=== PATIENT | male | born 1995 | race Caucasian/White ===

== ENCOUNTER → 2018-11-20 | Outpatient (CLI) | payer OTHER ==
[~2018-11-20] MED LIST: CYCL10 PO; HYDCOR2.5C PR; HYDHCL25 PO; Vistaril50 MG PO
[2018-11-20 12:26] LABS: Hematocrit 39.1 % (37.0-53.0); Hemoglobin 12.8 g/dL (13.5-17.5); Mean Corpuscular HGB 27.4 pg (26.0-34.0); Mean Corpuscular HGB Conc 32.7 g/dL (31.5-36.5); Mean Corpuscular Volume 84 fL (80-100); Mean Platelet Volume 9.6 fL (9.1-12.4); Platelet Count 248 K/mm3 (150-400); RDW Coefficient Variation 15.3 % (11.7-14.2); RDW Standard Deviation 46.2 fL (35.1-46.3); Red Blood Cell Count 4.67 M/mm3 (4.30-5.90); White Blood Cell Count 7.31 K/mm3 (4.00-11.30)
[2018-11-20 12:45] LABS: Alanine Aminotransfer (ALT/SGP 192 U/L (12-78); Albumin, Blood 3.2 g/dL (3.4-5.0); Albumin/Globulin Ratio 0.7 (0.8-1.8); Alk Phos 62 U/L (40-126); Anion Gap 12 mmol/L (6-16); Aspartate Aminotrans (AST/SGOT 133 U/L (12-37); Bilirubin, Total 0.4 mg/dL (0.1-1.0); Blood Urea Nitrogen 9 mg/dL (8-24); Bun/Creatinine Ratio 9.2 (12.0-20.0); CO2, Blood 25 mmol/L (21-32); Calcium, Blood 8.5 mg/dL (8.5-10.1); Chloride, Blood 106 mmol/L (98-108); Creatinine, Blood 0.98 mg/dL (0.60-1.20); Globulin, Blood 4.4 g/dL (2.2-4.0); Glomerular Filtration Rate >60 (60-); Glucose, Blood 131 mg/dL (70-99); Potassium, Blood 3.2 mmol/L (3.5-5.5); Sodium, Blood 143 mmol/L (136-145); Thyroid Stimulating Hormone 3.096 uIU/mL (0.360-4.800); Total Protein, Blood 7.6 g/dL (6.4-8.2)
[2018-11-20 13:09] LABS: BASOPHILS ABSOLUTE MAN 0.14 K/mm3 (0.00-0.23); BASOPHILS PERCENT MAN 2 % (0-2); EOSINOPHILS ABSOLUTE MAN 0.36 K/mm3 (0.00-0.68); EOSINOPHILS PERCENT MAN 5 % (0-6); LYMPHOCYTES % ATYPICAL MANUAL 22 % (0-0); LYMPHOCYTES ABSOLUTE MAN 4.53 K/mm3 (0.84-5.20); LYMPHOCYTES PERCENT MAN 40 % (21-46); MONOCYTES ABSOLUTE MAN 0.21 K/mm3 (0.16-1.47); MONOCYTES PERCENT MAN 3 % (4-13); NEUTROPHILS ABSOLUTE MAN 2.04 K/mm3 (1.96-9.15); SEG NEUTROPHILS PERCENT MAN 28 % (41-73); TOTAL CELLS COUNTED 100
== END | disposition home or self-care (01) ==
LOC: LAB EV 12:22 → LAB SHORT 12:22
PROVIDERS: Physician Assistant Medical
DX: R10.84 Generalized abdominal pain (principal)
CPT/HCPCS: 80053; 84443; 85025

== ENCOUNTER 2018-11-23 23:05 | Emergency (ER) | payer OTHER ==
[~2018-11-23] VITALS: Ht 190.5 cm; Wt 158.8 kg
[2018-11-23 23:58] LABS: Hematocrit 39.6 % (37.0-53.0); Hemoglobin 12.8 g/dL (13.5-17.5); Mean Corpuscular HGB 27.7 pg (26.0-34.0); Mean Corpuscular HGB Conc 32.3 g/dL (31.5-36.5); Mean Corpuscular Volume 86 fL (80-100); Platelet Count 294 K/mm3 (150-400); RDW Coefficient Variation 15.1 % (11.7-14.2); RDW Standard Deviation 47.1 fL (35.1-46.3); Red Blood Cell Count 4.62 M/mm3 (4.30-5.90); White Blood Cell Count 9.09 K/mm3 (4.00-11.30)
[2018-11-24 00:17] LABS: Alanine Aminotransfer (ALT/SGP 118 U/L (12-78); Albumin, Blood 3.4 g/dL (3.4-5.0); Albumin/Globulin Ratio 0.8 (0.8-1.8); Alk Phos 60 U/L (50-136); Anion Gap 6 mmol/L (6-16); Aspartate Aminotrans (AST/SGOT 103 U/L (12-37); Bilirubin, Total 0.6 mg/dL (0.1-1.0); Blood Urea Nitrogen 12 mg/dL (8-24); Bun/Creatinine Ratio 11.4 (12.0-20.0); CO2, Blood 27 mmol/L (21-32); Calcium, Blood 8.2 mg/dL (8.5-10.1); Chloride, Blood 110 mmol/L (98-108); Creatinine, Blood 1.05 mg/dL (0.60-1.20); Globulin, Blood 4.1 g/dL (2.2-4.0); Glomerular Filtration Rate >60 (60-); Glucose, Blood 92 mg/dL (70-99); Potassium, Blood 3.4 mmol/L (3.5-5.5); Sodium, Blood 143 mmol/L (136-145); Total Protein, Blood 7.5 g/dL (6.4-8.2)
[2018-11-24 00:23] LABS: BAND PERCENT MAN 3 % (0-8); BASOPHILS ABSOLUTE MAN 0.09 K/mm3 (0.00-0.23); BASOPHILS PERCENT MAN 1 % (0-2); EOSINOPHILS ABSOLUTE MAN 0.36 K/mm3 (0.00-0.68); EOSINOPHILS PERCENT MAN 4 % (0-6); LYMPHOCYTES % ATYPICAL MANUAL 23 % (0-0); LYMPHOCYTES ABSOLUTE MAN 5.36 K/mm3 (0.84-5.20); LYMPHOCYTES PERCENT MAN 36 % (21-46); MONOCYTES ABSOLUTE MAN 0.54 K/mm3 (0.16-1.47); MONOCYTES PERCENT MAN 6 % (4-13); NEUTROPHILS ABSOLUTE MAN 2.72 K/mm3 (1.96-9.15); SEG NEUTROPHILS PERCENT MAN 27 % (41-73); TOTAL CELLS COUNTED 100
[2018-11-24] MEDS ORDERED: HYDCOR2.5C PR (00:25)
== END 2018-11-24 00:46 | disposition home or self-care (01) ==
LOC: ER 23:05
PROVIDERS: Emergency Medicine
DX: K62.5 Hemorrhage of anus and rectum (principal)
CPT/HCPCS: 36415; 80053; 85025; 99284

== ENCOUNTER 2019-01-19 22:30 | Emergency (ER) | payer OTHER ==
[~2019-01-19] VITALS: Ht 190.5 cm; Wt 158.8 kg
[~2019-01-19 22:30] MED LIST changes: -CYCL10 PO; -HYDHCL25 PO; -Vistaril50 MG PO
[2019-01-19 23:44] LABS: BASOPHILS ABSOLUTE AUTO 0.04 K/mm3 (0.00-0.23); BASOPHILS PERCENT AUTO 0 % (0-2); EOSINOPHILS ABSOLUTE AUTO 0.25 K/mm3 (0.00-0.68); EOSINOPHILS PERCENT AUTO 2 % (0-6); Hematocrit 40.7 % (37.0-53.0); Hemoglobin 13.3 g/dL (13.5-17.5); IMMATURE GRAN ABSOLUTE AUTO 0.02 K/mm3 (0.00-0.10); IMMATURE GRAN PERCENT AUTO 0 % (0-1); LYMPHOCYTES ABSOLUTE AUTO 3.73 K/mm3 (0.84-5.20); LYMPHOCYTES PERCENT AUTO 36 % (21-46); MONOCYTES ABSOLUTE AUTO 0.78 K/mm3 (0.16-1.47); MONOCYTES PERCENT AUTO 8 % (4-13); Mean Corpuscular HGB 27.4 pg (26.0-34.0); Mean Corpuscular HGB Conc 32.7 g/dL (31.5-36.5); Mean Corpuscular Volume 84 fL (80-100); Mean Platelet Volume 9.7 fL (9.1-12.4); NEUTROPHILS ABSOLUTE AUTO 5.48 K/mm3 (1.96-9.15); NEUTROPHILS PERCENT AUTO 53 % (41-73); Platelet Count 410 K/mm3 (150-400); RDW Coefficient Variation 12.9 % (11.7-14.2); RDW Standard Deviation 38.8 fL (35.1-46.3); Red Blood Cell Count 4.85 M/mm3 (4.30-5.90)
[2019-01-20 00:03] LABS: Alanine Aminotransfer (ALT/SGP 33 U/L (12-78); Albumin, Blood 3.8 g/dL (3.4-5.0); Alk Phos 50 U/L (50-136); Anion Gap 7 mmol/L (6-16); Aspartate Aminotrans (AST/SGOT 16 U/L (12-37); Bilirubin, Total 0.3 mg/dL (0.1-1.0); Blood Urea Nitrogen 20 mg/dL (8-24); Bun/Creatinine Ratio 24.4 (12.0-20.0); CO2, Blood 26 mmol/L (21-32); Calcium, Blood 8.7 mg/dL (8.5-10.1); Chloride, Blood 108 mmol/L (98-108); Creatinine, Blood 0.82 mg/dL (0.60-1.20); Globulin, Blood 3.9 g/dL (2.2-4.0); Glomerular Filtration Rate >60 (60-); Glucose, Blood 88 mg/dL (70-99); Potassium, Blood 3.5 mmol/L (3.5-5.5); Sodium, Blood 141 mmol/L (136-145); Total Protein, Blood 7.7 g/dL (6.4-8.2)
[2019-01-20 00:34] LABS: Source, Urine Clean Catch
[2019-01-20 00:36] LABS: Bilirubin, Urine Neg (Neg); Blood, Urine Neg (Neg); Glucose Qualitative, Urine Neg (Neg); Ketones, Urine Neg (Neg); Leukocyte Esterase, Urine 1+ (Neg); Nitrite, Urine Neg (Neg); Protein, Urine Neg (Neg); Urobilinogen, Urine 1+ (Normal)
[2019-01-20 00:40] LABS: Appearance, Urine Clear (Clear); Color, Urine Yellow (P-Yellow)
[2019-01-20 00:43] LABS: Bacteria Few /hpf; Mucus Light (0-Heavy); Red Blood Cells, Urine Not Seen /hpf (0-2); Squamous Epithelial Cells Few /hpf (Few)
[2019-01-20] MEDS ORDERED: Vistaril50 MG PO (01:00)
[2019-01-21 15:06] LABS: CHLAMYDIA TRACHOMATIS, NAA Negative (Negative); NEISSERIA GONORRHOEAE, NAA Negative (Negative)
== END 2019-01-20 01:20 | disposition home or self-care (01) ==
LOC: ER 22:30
PROVIDERS: Emergency Medicine; Physician Assistant
DX: R07.9 Chest pain, unspecified (principal); R10.13 Epigastric pain
CPT/HCPCS: 36415; 80053; 81001; 83690; 85025; 87086; 87491; 87591; 93005; 93010; 96372; 99284-25; A9270-GY; J0696

== ENCOUNTER 2019-02-03 21:38 | Emergency (ER) | payer OTHER ==
[~2019-02-03] VITALS: Ht 190.5 cm; Wt 158.8 kg
[~2019-02-03 21:38] MED LIST changes: +Vistaril50 MG PO
[2019-02-03] MEDS ORDERED: CYCL10 PO (22:14)
[2019-02-03] MEDS ORDERED: Vistaril50 MG PO (22:14)
[2019-02-03] MEDS ORDERED: HYDHCL25 PO (22:29)
== END 2019-02-03 22:20 | disposition home or self-care (01) ==
LOC: ER 21:38
DX: R07.9 Chest pain, unspecified (principal)
CPT/HCPCS: 99283

== ENCOUNTER 2019-05-15 17:59 | Emergency (ER) | payer OTHER ==
[~2019-05-15] VITALS: Ht 190.5 cm; Wt 149.7 kg
[~2019-05-15 17:59] MED LIST changes: +CYCL10 PO; +HYDHCL25 PO
[2019-05-15 19:02] LABS: BASOPHILS ABSOLUTE AUTO 0.05 K/mm3 (0.00-0.23); BASOPHILS PERCENT AUTO 1 % (0-2); EOSINOPHILS ABSOLUTE AUTO 0.08 K/mm3 (0.00-0.68); EOSINOPHILS PERCENT AUTO 1 % (0-6); Hematocrit 49.4 % (37.0-53.0); Hemoglobin 15.8 g/dL (13.5-17.5); IMMATURE GRAN ABSOLUTE AUTO 0.03 K/mm3 (0.00-0.10); IMMATURE GRAN PERCENT AUTO 0 % (0-1); LYMPHOCYTES ABSOLUTE AUTO 1.59 K/mm3 (0.84-5.20); LYMPHOCYTES PERCENT AUTO 14 % (21-46); MONOCYTES ABSOLUTE AUTO 0.73 K/mm3 (0.16-1.47); MONOCYTES PERCENT AUTO 7 % (4-13); Mean Corpuscular HGB 27.3 pg (26.0-34.0); Mean Corpuscular Volume 85 fL (80-100); Mean Platelet Volume 9.6 fL (9.1-12.4); NEUTROPHILS ABSOLUTE AUTO 8.56 K/mm3 (1.96-9.15); NEUTROPHILS PERCENT AUTO 78 % (41-73); Platelet Count 447 K/mm3 (150-400); RDW Coefficient Variation 13.3 % (11.7-14.2); RDW Standard Deviation 41.5 fL (35.1-46.3); Red Blood Cell Count 5.79 M/mm3 (4.30-5.90); White Blood Cell Count 11.04 K/mm3 (4.00-11.30)
[2019-05-15 19:47] LABS: Alanine Aminotransfer (ALT/SGP 39 U/L (12-78); Albumin/Globulin Ratio 0.9 (0.8-1.8); Alk Phos 59 U/L (50-136); Anion Gap 8 mmol/L (6-16); Aspartate Aminotrans (AST/SGOT 17 U/L (12-37); Bilirubin, Total 0.8 mg/dL (0.1-1.0); Blood Urea Nitrogen 16 mg/dL (8-24); CO2, Blood 24 mmol/L (21-32); Chloride, Blood 105 mmol/L (98-108); Globulin, Blood 4.6 g/dL (2.2-4.0); Glomerular Filtration Rate >60 (60-); Glucose, Blood 100 mg/dL (70-99); Potassium, Blood 3.8 mmol/L (3.5-5.5); Sodium, Blood 137 mmol/L (136-145); Total Protein, Blood 8.6 g/dL (6.4-8.2)
[2019-05-15] MEDS ORDERED: Anti-Diarrheal2 MG PO (21:22)
[2019-05-15] MEDS ORDERED: Zofran4 MG PO (21:22)
== END 2019-05-15 21:30 | disposition home or self-care (01) ==
LOC: ER 17:59
PROVIDERS: Physician Assistant
DX: K52.9 Noninfective gastroenteritis and colitis, unspecified (principal); E86.0 Dehydration; F41.9 Anxiety disorder, unspecified; Z79.899 Other long term (current) drug therapy
CPT/HCPCS: 36415; 80053; 83690; 85025; 96361; 96374; 99283-25; J2405; J7030

== ENCOUNTER 2020-10-01 23:01 | Emergency (ER) | payer OTHER ==
[~2020-10-01] VITALS: Ht 193 cm; Wt 208.7 kg
[~2020-10-01 23:01] MED LIST changes: +Anti-Diarrheal2 MG PO; +Zofran4 MG PO
== END 2020-10-02 00:50 | disposition home or self-care (01) ==
LOC: ER 23:01
DX: M25.561 Pain in right knee (principal); K12.0 Recurrent oral aphthae
CPT/HCPCS: 73562-RT; 87081; 87430; 99283-25; A9270

== ENCOUNTER 2023-11-17 15:38 | Emergency (ER) | payer OTHER ==
[~2023-11-17] VITALS: Ht 193 cm; Wt 165.6 kg
[2023-11-17 15:53] VITALS: BP 154/101
[2023-11-17] MEDS ORDERED: PredniSONE 20 MG Tab PO ONE (18:45)
[2023-11-17] MEDS ORDERED: Famotidine 20 MG Tab PO ONE (18:45)
[2023-11-17] MEDS ORDERED: PRED20 PO (18:51)
[2023-11-17] MEDS ORDERED: FAMO20 PO (18:51)
== END 2023-11-17 19:23 | disposition home or self-care (01) ==
LOC: ER 15:38
DX: L50.9 Urticaria, unspecified (principal)
CPT/HCPCS: 99282; A9270; J7512

== ENCOUNTER 2024-05-29 09:45 | Emergency (ER) | payer OTHER ==
[~2024-05-29] VITALS: Ht 193 cm; Wt 167.8 kg
[~2024-05-29 09:45] MED LIST changes: +FAMO20 PO; +PRED20 PO
[2024-05-29 10:37] VITALS: BP 193/112
[2024-05-29] MEDS ORDERED: Diphth,Pertuss(Acell),Tet Vac 0.5 ML VIAL IM ONE (10:40)
== END 2024-05-29 11:28 | disposition home or self-care (01) ==
LOC: ER 09:45
DX: S60.410A Abrasion of right index finger, initial encounter (principal); Z23 Encounter for immunization; W22.09XA Striking against other stationary object, initial encounter; Z79.52 Long term (current) use of systemic steroids; Z79.899 Other long term (current) drug therapy
CPT/HCPCS: 73130; 90471; 90715; 99283-25